=== PATIENT | female | born 1995 | race Caucasian/White ===

== ENCOUNTER 2018-12-22 08:06 | Day surgery (SDC) | payer OTHER ==
[2018-12-22] MEDS ORDERED: fentaNYL 100 MCG/2 ML SDV IV ONE ×5 (08:07→09:55)
[2018-12-22] MEDS ORDERED: Midazolam 1 MG/ML 2 ML SDV IV ONE ×11 (08:07→09:59)
[2018-12-22] MEDS ORDERED: fentaNYL 100 MCG/2 ML SDV ONE (08:53)
[2018-12-22] MEDS ORDERED: Benzocaine 20% Topical Spray UD MUCMEM ONE ×2 (08:53→09:35)
[2018-12-22] MEDS ORDERED: Midazolam 1 MG/ML 2 ML SDV ONE ×2 (08:53→09:52)
[2018-12-22] MEDS ORDERED: Dextrose 5%-0.45% NaCl 1,000 ML IV SCH (09:00)
[2018-12-22 14:10] VITALS: BP 114/77
--- NOTE | 2018-12-22 16:34 | OR ---
DATE: PREOPERATIVE DIAGNOSIS: Epigastric pain, GERD, and history of gastritis. POSTOPERATIVE DIAGNOSIS: Epigastric pain, GERD, and history of gastritis. PROCEDURE: EGD with biopsy of pre-pyloric gastric antrum. ANESTHESIA: Conscious sedation with IV Versed and fentanyl. SPECIMEN: H pylori biopsy of the stomach. OPERATIVE FINDINGS: Normal EGD. INDICATION FOR PROCEDURE: This 23-year-old female has a prior history of abdominal pain, epigastric discomfort, some GERD. Workup for gallbladder is negative. She has been to the emergency room and was labeled as possible gastritis. PROCEDURE IN DETAIL: After adequate preparation, a gastroscope was inserted into the esophagus. This was passed down to the distal esophagus. This appears to be normal. The scope was advanced into the stomach. Both forward and retroflexed views were done and are normal. The scope was advanced through the pylorus, and the first and second part of the duodenum are also normal. On withdrawal of the scope in the pre-pyloric area, a biopsy for H pylori was taken. No other abnormalities of the stomach or esophagus were noted. Air was suctioned from the stomach, and the scope removed. [facility] /[id number]
--- NOTE | 2018-12-22 16:40 | OR ---
DATE: 12/22/2018 PREOPERATIVE DIAGNOSIS: Abdominal pain, diarrhea, and history of labeled irritable bowel syndrome. POSTOPERATIVE DIAGNOSIS: Abdominal pain, diarrhea, and history of labeled irritable bowel syndrome. PROCEDURE: Total colonoscopy. ANESTHESIA: Conscious sedation with IV Versed and fentanyl. SPECIMEN: None. FINDINGS: Normal colonoscopy. RECOMMENDATION: Followup colonoscopy for symptoms only. INDICATION FOR PROCEDURE: This 23-year-old female who has had abdominal pain and diarrhea over the last year. She has been labeled somewhere in her medical history as having irritable bowel syndrome. She has no rectal bleeding. PROCEDURE IN DETAIL: After adequate preparation, a colonoscope was inserted into the rectum, this was easily passed all the way to the cecum. Confirmation of the cecum was made by visualization of the ileocecal valve and palpation in the right lower quadrant. A photograph of the ileocecal valve was taken. The bowel prep was very good. On withdrawal of the scope, there were no abnormalities. Rectal and anal examined are also normal. Air was suctioned from the colon, and the scope removed. [facility] /[id number]
== END 2018-12-22 11:48 | disposition home or self-care (01) ==
LOC: DL.ENDO 08:06
PROVIDERS: ATTEND Surgery
DX: R10.13 Epigastric pain (principal); K21.9 Gastro-esophageal reflux disease without esophagitis; R19.7 Diarrhea, unspecified; R10.9 Unspecified abdominal pain; Z87.19 Personal history of other diseases of the digestive system; J45.909 Unspecified asthma, uncomplicated; F17.200 Nicotine dependence, unspecified, uncomplicated
CPT/HCPCS: 43239; 45378; 81025; 87077; A9270; J2250; J3010; J7042